=== PATIENT | male | born 1990 | race Caucasian/White ===

== ENCOUNTER 2018-12-29 17:08 | Emergency (ER) | payer SELFPAY ==
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
== END 2018-12-29 18:45 | disposition home or self-care (01) ==
LOC: ERS 17:08
DX: M25.562 Pain in left knee (principal); F17.210 Nicotine dependence, cigarettes, uncomplicated; V89.2XXA Person injured in unspecified motor-vehicle accident, traffic, initial encounter